=== PATIENT | female | born 1995 | race Caucasian/White ===

== ENCOUNTER 2020-01-02 14:16 | Emergency (ER) | payer BC ==
[~2020-01-02] VITALS: Ht 175.3 cm; Wt 97.5 kg
[2020-01-02] MEDS ORDERED: FLOVENT HFA 4444 MCG INH (15:34)
[2020-01-02 15:57] VITALS: BP 111/81
[2020-01-03] MEDS ORDERED: PREDNISONE50 MG PO (12:07)
[2020-01-03] MEDS ORDERED: ALBUTEROL2.5 MG/31 INH (14:26)
[2020-01-03] MEDS ORDERED: ATIVAN0.5 M1 PO (14:26)
== END 2020-01-02 15:50 | disposition home or self-care (01) ==
LOC: ER 14:16
DX: J45.901 Unspecified asthma with (acute) exacerbation (principal)

== ENCOUNTER 2020-01-03 11:35 | Emergency (ER) | payer BC ==
[~2020-01-03] VITALS: Ht 177.8 cm; Wt 97.5 kg
[~2020-01-03 11:35] MED LIST: FLOVENT HFA 4444 MCG INH
[2020-01-03] MEDS ORDERED: PREDNISONE50 MG PO (12:07)
[2020-01-03 13:34] LABS: ABSOLUTE NEUTROPHILS 14.9 thou/uL (1.4-8.2); BASOPHILS 0.3 % (0.0-2.0); EOSINOPHILS 0.3 % (0.0-3.0); HEMATOCRIT 44.5 % (37.0-47.0); HEMOGLOBIN 14.8 gm/dL (12.0-15.0); MCH 28.3 pg (26.0-34.0); MCHC 33.2 g/dL (28.0-37.0); MCV 85.2 fL (80.0-100.0); PLATELET COUNT 247 thou/uL (150-400); POLYS 86.4 % (36.0-66.0); RBC 5.23 mil/uL (4.20-5.00); RDW 13.4 % (10.5-14.5); WBC 17.2 thou/uL (4.0-11.0)
[2020-01-03 13:41] LABS: CALCIUM 9.8 mg/dL (8.5-10.1); CREATININE 0.8 mg/dL (0.6-1.0); POTASSIUM 3.5 mmol/L (3.5-5.1)
[2020-01-03] MEDS ORDERED: ALBUTEROL2.5 MG/31 INH (14:26)
[2020-01-03] MEDS ORDERED: ATIVAN0.5 M1 PO (14:26)
[2020-01-03 14:40] VITALS: BP 118/75
== END 2020-01-03 14:45 | disposition home or self-care (01) ==
LOC: ER 11:35
PROVIDERS: Nurse Practitioner Family
DX: J45.901 Unspecified asthma with (acute) exacerbation (principal); F41.9 Anxiety disorder, unspecified

== ENCOUNTER 2020-12-22 13:37 | Emergency (ER) | payer BC ==
[~2020-12-22] VITALS: Ht 180.3 cm; Wt 108.9 kg
[~2020-12-22 13:37] MED LIST changes: +ALBUTEROL2.5 MG/31 INH; +ATIVAN0.5 M1 PO; +PREDNISONE50 MG PO
[2020-12-22] MEDS ORDERED: PROZAC40 MG PO (16:36)
[2020-12-22] MEDS ORDERED: CLONAZEPAM 0.50.5 M1 PO (16:36)
[2020-12-22] MEDS ORDERED: VENTOLIN HFA 1818 GM INH (16:36)
[2020-12-22] MEDS ORDERED: PROMETHAZINE-D473 M1 PO (18:12)
[2020-12-22 19:03] VITALS: BP 114/74
== END 2020-12-22 19:12 | disposition home or self-care (01) ==
LOC: ER 13:37
DX: U07.1 COVID-19 (principal); J45.909 Unspecified asthma, uncomplicated; Z79.899 Other long term (current) drug therapy